=== PATIENT | female | born 1995 | race Caucasian/White ===

== ENCOUNTER 2021-05-12 11:40 | Emergency (ER) | payer OTHER, SELFPAY ==
[2021-05-12 11:54] VITALS: BP 104/57; PULSE 77; RESP 18; TEMP 36.4; O2SAT 100
--- NOTE | 2021-05-12 12:16 | ED.URI ---
HPI - URI/Sore Throat General Chief Complaint: Upper Respiratory Infection Stated Complaint: cough/congestion/headache/back pain Time Seen by Provider: 05/12/21 12:16 Source: patient Mode of arrival: ambulatory Limitations: no limitations History of Present Illness HPI Narrative: Teresa Lyn is a 25 yo female with PMH of renal stones who comes to express care with congestion, sore throat, backache, cough, headache for the last 2 to 3 days. Patient is unvaccinated for Covid. Related Data Allergies Allergy/AdvReac Type Severity Reaction Status Date / Time nabumetone Allergy Unknown Verified 04/05/11 11:52 No Known Allergies Allergy Verified 05/12/21 12:33 Review of Systems Review of Systems: CONSTITUTIONAL: Denies fever, has chills, sweats. Has headache and backache EYES: Denies visual changes, redness, discharge. ENT: Denies rhinorrhea, has congestion, has sore throat, otalgia. CARDIOVASCULAR: Denies chest pain, palpitations, edema. RESPIRATORY: Denies dyspnea, wheezing, has cough GASTROINTESTINAL: Denies abdominal pain, nausea, vomiting, diarrhea. GENITOURINARY: Denies dysuria, hematuria, abnormal discharge SKIN: Denies rash or itching. NEUROLOGIC: Denies numbness, or focal weakness. PSYCHIATRIC: Denies anxiety or depression. PMFSH Past Medical History Medical History (Updated 05/12/21 @ 12:23 by Meaghan Elise CNP) No acute medical problems Surgical History Surgical History (Updated 05/12/21 @ 12:19 by Meaghan Elise CNP) H/O lithotripsy Family History Family History Grandparent Family history of malignant neoplasm Family history of coronary artery disease Diabetes mellitus Social History Social History Smoking status: Never smoker Alcohol intake: never Gender identity (if verbalized by the patient): Female Comments At time of signature, I agree with nursing past medical, surgical, social and family history. There is no relevant family history pertinent to the presenting complaint. Exam Narrative: GENERAL: This is a well-nourished, well-developed patient, in moderate distress. HEAD: normocephalic, atraumatic. EYES: . Sclera clear/white. Vision is grossly intact. EARS: External ears normal, . Hearing grossly intact. NOSE: External nose normal without nasal discharge, nares without redness, no rhinorrhea. THROAT: Mucous membranes moist, posterior pharynx erythema NECK: Neck supple, non-tender CARDIOVASCULAR: Regular rate and rhythm without murmurs, gallops, or rubs. RESPIRATORY: Clear to auscultation. Breath sounds equal bilaterally. No wheezes, rales, or rhonchi. GASTROINTESTINAL: Abdomen soft, non-tender, SKIN: warm, intact with no suspicious lesions or rash, good texture and turgor. NEURO: awake, alert, and oriented to person, place and time. There were no obvious focal neurologic abnormalities. Steady gait- complaining of headache EXTREMITIES: Normal range of motion. BACK: Nontender without deformity, complaining of bilateral back pain Course Course Emergency Course: Patient is a 25-year-[facility] of headache cough back pain congestion not feeling well Covid and strep ordered Covid rapid done which was positive UA showed only 2+ blood and pt is on menses Patient placed on isolation for 10 days and started on prednisone, albuterol, Tessalon, ibuprofen, emphasize hydration and infection control. Avoid people that have not been vaccinated Vital Signs Vital signs: Vital Signs Temperature 97.6 F 05/12/21 11:54 Pulse Rate 77 05/12/21 11:54 Respiratory Rate 18 05/12/21 11:54 Blood Pressure 104/57 L 05/12/21 11:54 Pulse Oximetry 100 05/12/21 11:54 Temperature 97.6 F 05/12/21 11:54 Pulse Rate 77 05/12/21 11:54 Respiratory Rate 18 05/12/21 11:54 Blood Pressure 104/69 05/12/21 12:33 Pulse Oximetry 1
[2021-05-12 12:31] VITALS: BP 104/69
[2021-05-12 12:33] VITALS: BP 104/69
== END 2021-05-12 12:31 | disposition home or self-care (01) ==
PROVIDERS: Emergency Provider Nurse Practitioner
DX: U07.1 COVID-19 (principal)
CPT/HCPCS: 81003; 87081; 87426; 87880; 99213; C9803; G0463

== ENCOUNTER 2023-08-18 15:56 | Emergency (ER) | payer OTHER, SELFPAY ==
--- NOTE | 2023-08-18 16:00 | ED.WOUNDLAC ---
HPI - Wound/Laceration General Chief Complaint: Wound/Laceration Stated Complaint: Wound Check Time Seen by Provider: 08/18/23 15:59 Source: patient Mode of arrival: ambulatory Limitations: no limitations History of Present Illness HPI narrative: Patient is a 27-year-old female who presents with concern for surgical site infection. Patient had moved job done in [place] on August 01. Patient states today she started having minor drainage from left moved around areola. Denies any redness streaking. Also reports macular papular rash that started yesterday. Denies any fever, chills, nausea, vomiting, diarrhea. Related Data Allergies Allergy/AdvReac Type Severity Reaction Status Date / Time No Known Allergies Allergy Verified 08/18/23 16:39 Review of Systems Review of Systems: All systems reviewed & are unremarkable except as noted in HPI and below Constitutional: Constitutional: Denies body ache(s), Denies chills, Denies fatigue, Denies fever(s), Denies headache(s), Denies malaise and Denies weakness Eyes: Eyes: Denies blurry vision, Denies irritation and Denies loss of vision ENT: Denies otalgia, Denies headache(s), Denies nasal discharge, Denies sinus pain and Denies sore throat Cardiovascular: Cardiovascular: Denies chest pain, Denies irregular heart rhythm and Denies dyspnea Respiratory: Respiratory: Denies dyspnea Gastrointestinal: Gastrointestinal: Denies abdominal pain, Denies melena, Denies hematochezia, Denies diarrhea, Denies nausea and Denies vomiting Musculoskeletal: Musculoskeletal: Denies back pain, Denies myalgias and Denies arthralgias Integumentary/Breasts: Skin/Breast: Denies pruritus, Denies rash and Reports wounds Neurologic: Denies headache(s), Denies loss of vision and Denies weakness Psychiatric: Psychiatric: Reports no additional psychiatric complaints Endocrine: Endocrine: Denies fatigue PMFSH Past Medical History Medical History BMI 25.0-25.9,adult No acute medical problems Surgical History Surgical History H/O lithotripsy Family History Family History Grandparent Family history of malignant neoplasm Family history of coronary artery disease Diabetes mellitus Social History Social History Smoking status: Never smoker Alcohol intake: never Lack of Transportation: No Lack of Food: Never True Current Housing: I Have Housing Concerned About Future Housing: No Difficulty Paying Gas/Electric Bills: No Difficulty Paying for Meds: No Currently Unemployed: No Difficulty w/ Childcare or Family Care: No Gender identity (if verbalized by the patient): Female Comments At time of signature, agree with nursing past medical, surgical, social and family history. There is no relevant family history pertinent to the presenting complaint. Exam Const: General: cooperative, healthy appearing, comfortable, no acute distress and well nourished Nutritional Appearance: well nourished Orientation/consciousness: patient oriented x3 Limitations: no limitations HENMT: Head: normal to inspection, normocephalic and atraumatic Ears: hearing grossly normal bilaterally and external ears normal Face/Nose/Sinus: Normal external nose present, normal facial exam and face symmetric Face and sinus: normal facial exam and face symmetric Mouth: Yes lip normal Eyes: General: appearance normal, both eyes and all related structures Alignment and Position: alignment normal and position normal Periorbital: periorbital findings normal Eyelids: eyelids normal Pupils: Equal, round and reactive pupils present EOM: EOMs intact bilaterally Neck: Neck: normal visual inspection, full ROM and supple Chest: Chest palpation & inspection: normal inspection of the chest Ches
[2023-08-18 16:14] VITALS: BP 105/73; PULSE 52; RESP 16; TEMP 36.3; O2SAT 100
== END 2023-08-18 16:46 | disposition home or self-care (01) ==
PROVIDERS: Emergency Provider Nurse Practitioner Family; PCP Family Medicine
DX: T85.79XA Infection and inflammatory reaction due to other internal prosthetic devices, implants and grafts, initial encounter (principal); Z98.82 Breast implant status; F41.9 Anxiety disorder, unspecified
CPT/HCPCS: 99213; G0463

== ENCOUNTER 2023-09-29 17:16 | Emergency (ER) | payer OTHER, SELFPAY ==
[2023-09-29 17:28] VITALS: BP 104/75; PULSE 102; RESP 16; TEMP 36.8; O2SAT 99
--- NOTE | 2023-09-29 17:37 | ED.SKABFB ---
HPI - Skin/Abscess/Foreign Bdy General Chief complaint: Skin/Abscess/Foreign Body Stated complaint: Rash Time Seen by Provider: 09/29/23 17:37 Source: patient Mode of arrival: ambulatory Limitations: no limitations History of Present Illness HPI narrative: 28-year-old female presents with complaint of intermittent hives for the past week. States started after getting back from [facility] vacation. Started to left thigh took Benadryl and resolved. Now has to back, chest. Has not taking any Benadryl. Unable to get in with primary care physician for 2 days. No difficulty swallowing or breathing. All systems reviewed and negative except as noted above. Related Data Allergies Allergy/AdvReac Type Severity Reaction Status Date / Time No Known Allergies Allergy Verified 08/18/23 16:39 Review of Systems Review of Systems: CONSTITUTIONAL: Denies fever, chills, or sweats. EYES: Denies visual changes, redness, or discharge. ENT: denies rhinorrhea, congestion, sore throat, or otalgia. CARDIOVASCULAR: Denies chest pain, palpitations, or edema. RESPIRATORY: Denies cough or dyspnea. GASTROINTESTINAL: Denies abdominal pain, nausea, vomiting, or diarrhea. GENITOURINARY: Denies dysuria or hematuria. SKIN: reports rash and itching. MUSCULOSKELETAL: Denies back pain, joint pain, or myalgia. NEUROLOGIC: Denies headache, numbness, or weakness. PSYCHIATRIC: Denies anxiety or depression. All other systems reviewed are negative, except as documented in HPI. [facility] Past Medical History Medical History BMI 25.0-25.9,adult No acute medical problems Surgical History Surgical History H/O lithotripsy Family History Family History Grandparent Family history of malignant neoplasm Family history of coronary artery disease Diabetes mellitus Social History Social History Smoking status: Never smoker Alcohol intake: never Lack of Transportation: No Lack of Food: Never True Current Housing: I Have Housing Concerned About Future Housing: No Difficulty Paying Gas/Electric Bills: No Difficulty Paying for Meds: No Currently Unemployed: No Difficulty w/ Childcare or Family Care: No Gender identity (if verbalized by the patient): Female Comments At time of signature, agree with nursing past medical, surgical, social and family history. There is no relevant family history pertinent to the presenting complaint. Exam Narrative: GENERAL: This is a well-nourished, well-developed patient, in no apparent distress. HEAD: normocephalic, atraumatic. EYES: PERRL. Sclera clear/white. Vision is grossly intact. EARS: External ears normal NOSE: External nose normal NECK: Neck supple, non-tender without lymphadenopathy, masses or thyromegaly. CARDIOVASCULAR: Regular rate and rhythm without murmurs, gallops, or rubs. RESPIRATORY: Clear to auscultation. Breath sounds equal bilaterally. No wheezes, rales, or rhonchi. SKIN: warm, Dry, intact, good texture and turgor. erythematous hives to lower back, chest and inbetween breasts. NEURO: awake, alert, and oriented to person, place and time. There were no obvious focal neurologic abnormalities. EXTREMITIES: No joint tenderness, effusion, or edema noted. Course Course Level of Care: Express Care Visit Vital Signs Vital signs: Vital Signs Temperature 36.8 C 09/29/23 17:28 Pulse Rate 102 H 09/29/23 17:28 Respiratory Rate 16 09/29/23 17:28 Blood Pressure 104/75 09/29/23 17:28 Pulse Oximetry 99 09/29/23 17:28 Oxygen Delivery Room Air 09/29/23 17:28 Temperature 36.8 C 09/29/23 17:28 Pulse Rate 102 H 09/29/23 17:28 Respiratory Rate 16 09/29/23 17:28 Blood Pressure 104/75 09/29/23 17:28 Pulse Oximetry 99 09/29
== END 2023-09-29 17:50 | disposition home or self-care (01) ==
PROVIDERS: Emergency Provider Nurse Practitioner Family; PCP Family Medicine
DX: L50.9 Urticaria, unspecified (principal)
CPT/HCPCS: 99213; G0463

== ENCOUNTER 2025-07-05 17:56 | Emergency (ER) | payer OTHER, SELFPAY ==
[2025-07-05 18:03] VITALS: BP 99/67; PULSE 66; RESP 16; TEMP 36.5; O2SAT 99
--- NOTE | 2025-07-05 18:15 | ED_ITS ---
HPI - Nausea/Vomiting/Diarrhea General Chief complaint: Nausea/Vomiting/Diarrhea Stated complaint: Unable to Eat/Dehydrated Time Seen by Provider: 07/05/25 17:58 Source: patient Mode of arrival: ambulatory Limitations: no limitations History of Present Illness HPI Narrative: Patient is a 29-year-old female who presents with 2 days of nausea, vomiting and diarrhea. Denies any abdominal cramping. States she ate [employer] the night before symptoms started. Also reports cold chills and sweating. No other family members are ill. States she has no appetite and does have significant fatigue. Patient has taken ibuprofen once. Related Data Home Medications ?Medication ?Instructions ?Recorded ?Confirmed ?Last Taken ?Type dextroamphetamine-amphetamine ER PO 07/05/25 Unknown History 20 mg 24hr capsule,extend release duloxetine 30 mg capsule,delayed mg PO 07/05/25 Unkno wn History release Allergies Allergy/AdvReac Type Severity Reaction Status Date / Time metronidazole (From Flagyl) Allergy Unknown Hives Verified 07/05/25 17:59 Review of Systems Review of Systems: All systems reviewed & are unremarkable except as noted in HPI and below Constitutional: Constitutional: Denies body ache(s), Denies chills, Denies fatigue, Denies fever(s), Denies headache(s), Denies malaise and Denies weakness Eyes: Eyes: Denies blurry vision, Denies irritation and Denies loss of vision ENT: Denies otalgia, Denies headache(s), Denies nasal discharge, Denies sinus pain and Denies sore throat Cardiovascular: Cardiovascular: Denies chest pain, Denies irregular heart rhythm and Denies dyspnea Respiratory: Respiratory: Denies dyspnea Gastrointestinal: Gastrointestinal: Denies abdominal pain, Denies melena, Denies hematochezia, Reports diarrhea, Reports nausea and Reports vomiting Musculoskeletal: Musculoskeletal: Denies back pain, Denies myalgias and Denies arthralgias Integumentary/Breasts: Skin/Breast: Denies pruritus and Denies rash Neurologic: Denies headache(s), Denies loss of vision and Denies weakness Psychiatric: Psychiatric: Reports no additional psychiatric complaints Endocrine: Endocrine: Denies fatigue PMFSH Past Medical History Medical History Left rotator cuff tear Overweight with body mass index (BMI) of 28 to 28.9 in adult BMI 25.0-25.9,adult No acute medical problems Surgical History Surgical History H/O lithotripsy Family History Family History Grandparent Family history of malignant neoplasm Family history of coronary artery disease Diabetes mellitus Social History Social History Smoking status: Never smoker Alcohol intake: never Lack of Transportation: No Lack of Food: Never True Current Housing: I Have Housing Concerned About Future Housing: No Difficulty Paying Gas/Electric Bills: No Difficulty Paying for Meds: No Currently Unemployed: No Difficulty w/ Childcare or Family Care: No Gender identity (if verbalized by the patient): Female Comments At time of signature, agree with nursing past medical, surgical, social and family history. There is no relevant family history pertinent to the presenting complaint. Exam Const: General: cooperative, healthy appearing, comfortable, no acute distress and well nourished Nutritional Appearance: well nourished Orientation/consciousness: patient oriented x3 Limitations: no limitations HENMT: Head: normal to inspection, normocephalic and atraumatic Ears: hearing grossly normal bilaterally and external ears normal Face/Nose/Sinus: Normal external nose present, normal facial exam and face symmetric Face and sinus: normal facial exam and face symmetric Mouth: Yes lip normal Eyes: General: appearance normal, both eyes and all related structures Alignment and Position: alignment normal and position normal Periorbital: periorbital findings normal Eyelids: eyelids normal Pupils: Equal, round and reactive pupils present EOM: EOMs intact bilaterally Neck: Neck: normal visual inspection, full ROM and supple Chest: Chest palpation & inspection: normal inspection of the chest Resp: Effort & Inspection: normal respiratory effort and able to speak in complete sentences Auscultation: clear to auscultation bilaterally Cardio: Rate: regular rate Rhythm: regular rhythm Heart sounds: S1 normal heart sound present and S2 normal heart sound present GI: Inspection: normal to inspection Skin: General skin exam: normal color and no rashes or lesions noted Neuro: General: patient oriented x3 and moves all extremities Cranial nerves: Yes Equal, round and reactive pupils present Speech: normal speech Gait exam (Neuro): Normal gait present Extrem: General: normal to inspection, full ROM and no edema Psych: Appearance: grossly normal and well kempt Mental Status: mental status grossly normal Speech and movement: Normal speech and movement present Affect: normal affect Attitude: cooperative Thought process: Normal thought process present Course Course Emergency Course: Patient is aware of diagnosis, understands and agrees to treatment plan. Anticipatory guidance given. Patient agrees to follow-up as directed and is aware of reasons to seek care at the emergency department. Portions of this record may have been created with voice recognition software Level of Care: Express Care Visit Vital Signs Vital signs: Vital Signs Temperature 36.5 C 07/05/25 18:03 Pulse Rate 66 07/05/25 18:03 Respiratory Rate 16 07/05/25 18:03 Blood Pressure 99/67 L 07/05/25 18:03 Pulse Oximetry 99 07/05/25 18:03 Oxygen Delivery Room Air 07/05/25 18:03 Temperature 36.5 C 07/05/25 18:03 Pulse Rate 66 07/05/25 18:03 Respiratory Rate 16 07/05/25 18:03 Blood Pressure 99/67 L 07/05/25 18:03 Pulse Oximetry 99 07/05/25 18:03 Oxygen Delivery Room Air 07/05/25 18:03 Reviewed MDM - Nausea/Vomiting/Diarrhea MDM Narrative Medical decision making narrative: Pt well hydrated appearing, in no respiratory distress, hemodynamically stable. Recommend supportive care. The patient is stable at time of discharge the clinical impression was discussed and the patient was given the opportunity to ask questions, which were addressed as completely as possible given the information available at present. Anticipatory guidance and return to care precautions were discussed and the importance of primary care follow-up was stressed and encouraged. The patient voiced understanding of the plan, indications to return, and the need for follow-up. Exam findings show no acute concerns or changes Patient is appropriate for outpatient treatment and follow-up. Differential Diagnosis Differential diagnosis: Likely food poisoning, gastroenteritis and dehydration Medical Records Attestation: I reviewed the patient's medical records. Lab Data Attestation: I reviewed the patient's lab results. Labs: Lab Results 07/05/25 Range/Units 18:15 POC Influenza A Ag Negative (Negative) POC Influenza B Ag Negative (Negative) POC SARS CoV-2 Ag Negative (Negative) Discharge Plan Discharge Clinical Impression: Gastroenteritis Patient Disposition: Home Condition: Stable Instructions: Gastroenteritis (ED) Additional Instructions: Stay hydrated. Take small sips of fluid containing electrolytes frequently(Body [place], Gatorade, Powerade, liquid IV). Eat small meals that her very bland including bananas, applesauce, rice, toast, boiled or grilled chicken, soup. Do not eat anything fried, spicy or overly acidic. After 48 hours of diarrhea you can take [id number] Imodium. You should go to the hospital if you experience return of persistent nausea and vomiting that does not resolve and does not allow you to tolerate any food or fluids, persistent fevers for greater than 2-3 more days, increasing abdominal pain that persists despite medications, persistent diarrhea, dizziness, syncope (fainting), or for any other concerns. Patient Language: Ukrainian Prescriptions: New ondansetron 4 mg tablet,disintegrating 4 mg PO Q6-8H PRN (Reason: nausea and vomiting) Qty: 7 0RF No Action dextroamphetamine-amphetamine 20 mg capsule,extended release 24hr PO duloxetine 30 mg capsule,delayed release(DR/EC) PO lisdexamfetamine [Vyvanse] 30 mg capsule 30 mg PO DAILY Qty: 30 0RF Rx Instructions: take same time every am alprazolam [Xanax] 0.25 mg tablet 0.25 mg PO BID PRN (Reason: anxiety) Qty: 4 0RF Rx Instructions: will take prior to flight Follow-up/Referrals: Beka Hernández MD [Primary Care Provider, Family Practice] - 1 Week Stand Alone Forms: Work/School Release IP Time of Disposition: 18:39
[2025-07-05 18:42] LABS: EDCOVIDSCREEN Negative (Negative); EDINFLUASCREEN Negative (Negative); EDINFLUBSCREEN Negative (Negative)
== END 2025-07-05 18:45 | disposition home or self-care (01) ==
PROVIDERS: Emergency Provider Nurse Practitioner Family; PCP Family Medicine
DX: K52.9 Noninfective gastroenteritis and colitis, unspecified (principal); Z20.822 Contact with and (suspected) exposure to COVID-19
CPT/HCPCS: 87426; 87804; 99213; G0463

== ENCOUNTER 2025-07-06 08:58 | Emergency (ER) | payer OTHER, SELFPAY ==
--- NOTE | ~2025-07-06 | CT_ITS ---
EXAMINATION: CT abdomen pelvis w con DATE: 07/06/2025 10:49 INDICATION: Generalized abdominal pain. TECHNIQUE: Computed tomography (CT) of the abdomen and pelvis was performed with 100 mL Omnipaque 350 intravenous contrast. Automated exposure control and iterative reconstruction technique were employed. The dose-length product was 305.17 mGy-cm. COMPARISON: None. FINDINGS: The visualized portions of the lung bases are clear without pneumonia or pleural effusion. The heart size is normal. No pericardial effusion. There are bilateral breast implants. The liver, gallbladder, spleen, pancreas, adrenal glands, and kidneys are normal. There are no dilated loops of bowel. The appendix is normal. There are no pathologically enlarged lymph nodes. There is physiologic fluid in the pelvis. The bones are unremarkable. IMPRESSION: 1. No etiology for the patient's symptoms. Reviewed, dictated and finalized at location E.
[2025-07-06 09:08] VITALS: BP 103/69; PULSE 62; RESP 16; TEMP 36.7; O2SAT 100
--- OUTSIDE RECORDS SUMMARY | 2025-07-06 09:32 | XMS_ITS | Clinical Summary ---
Author Organization [facility] Address [address] [place] [address] Phone Care Team Providers Care Sterile Products Processor Name Role Phone Honorable, Eva Paredes APRN, SUKUMAR Primary Care Provider Allergies Active Allergy Reactions Criticality Noted Date Comments Metronidazole Hives,Itching,Swelling High 10/04/2017 Hives Medications butalbital-acetam inophen-caffeine (FIORICET, ESGIC) 50-325-40 MG Tablet Take 1 Tablet by mouth. 12/23/19 19 Active cyclobenzaprine (FLEXERIL) 10 MG Tablet Take 10 mg by mouth. 12/23/19 19 Active dextromethorphan (Tussin Cough) 15 MG/5ML SyrupIndications: Acute cough Take 10 mL by mouth every 12 hours. 118 mL 08/26/20 24 Active albuterol 108 (90 Base) MCG/ACT Aerosol SolutionIndicatio ns:Bronchitis with acute wheezing take 2 Puffs by inhalation every 4 hours as needed for Wheezing. 18 g 08/30/20 24 Active cyclobenzaprine (FLEXERIL) 10 MG TabletIndications :Torticollis Take 1 Tablet by mouth 3 times daily as needed for Muscle spasms for up to 20 doses. 20 Tablet 08/30/20 24 Active Desvenlafaxine Succinate 50 MG TABLET SR 24 HR Take 1 Tablet by mouth daily. 90 Tablet 1 09/16/20 24 Active ALPRAZolam (XANAX) 0.25 MG TabletIndications :Anxiety TAKE 1 TABLET BY MOUTH TWICE DAILY NEEDED FOR ANXIETY 4 Tablet 11/22/19 25 Active amphetamine-dextr oamphetamine (ADDERALL XR) 20 MG CAPSULE SR 24 HRIndications:Poo r concentration Take 1 Capsule by mouth every morning. 30 Capsule 02/17/20 25 Active tirzepatide-weigh t management (Zepbound) 7.5 MG/0.5ML Solution Auto-injector 7.5 mg by Subcutaneous route once a week. 2 mL 1 02/23/20 25 Active Active Problems No known active problems Encounters Date Type Department Care Team Description 04/14/2025 Refill [facility] - Primary Care - Normal [address] [place] [id number] Eva Smith APRN, SUKUMAR Medication Refill 04/06/2025 Telephone [facility] [address] [place] [address] Eva Smith APRN, CNP Prior Authorization (tirzepatide-weight management (Zepbound) 7.5 MG/0.5ML Solution Auto-injector ) from Last 3 Months Immunizations Immunization Administration Dates Next Due Influenza Vaccine,unspecified Formulation 2020,09/12/2020,08/02/2020 Influenza,Split Virus,Trivalent,Injectable,PF 07/15/2024 RHO(D) Immune Globulin- IV Or IM 07/20/2015 TDAP Vaccine 11/22/2020,10/12/2015 Social History Tobacco Use Types Packs/Day Years Used Date Smoking Tobacco: Never Smokeless Tobacco: Never Tobacco Cessation:Counseling Given: Not Answered PHQ-2 Answer Date Recorded Total Score - Questions 1-9 15 12/2023 Comments No Sex and Gender Information Value Date Recorded Sex Assigned at Not on file Legal Sex Female 1:51 PM CDT Gender Identity Not on file Sexual Orientation Not on file Last Filed Vital Signs Vital Sign Reading Time Taken Comments Blood Pressure 97/71 08/30/2024 11:53 AM FOREST FIRE OFFICER Pulse 70 08/30/2024 11:53 AM FOREST FIRE OFFICER Temperature 36.4 C (97.6 F) 08/30/2024 11:53 AM FOREST FIRE OFFICER Respiratory Rate 20 08/30/2024 11:53 AM FOREST FIRE OFFICER Oxygen Saturation 98% 08/30/2024 11:53 AM FOREST FIRE OFFICER Inhaled Oxygen Concentration - - Weight 61.7 kg (136 lb) 02/16/2025 7:00 AM CDT p t stated Height 160 cm (5' 3) 02/16/2025 7:00 AM CDT Body Mass Index 24.09 02/16/2025 7:00 AM CDT Plan of Treatment Health Maintenance Due Date Last Done Comments Hepatitis C Virus (HCV) Screening 1993 Hepatitis B Immunization (1 of 3 - 19+ 3-dose series) 2012 Pap Smear 2014 Human Papillomavirus (HPV) Immunization (1 - 3-dose SCDM series) 2020 Cervical Cancer Screening (CCS) 2023 HPV/Cotest 2023 Influenza Immunization (#1) 06/13/202512/2023, 07/16/2021, 09/12/2020, Additional history exists SARS-COV-2 Immunization ( season) 2025 10/17/2021, 08/08/2021 Td Immunization Every 10 Years (Adults With 1 Tdap) 11/22/2030 11/22/2020, 10/12/2015 Respiratory Syncytial Virus (RSV) Immunization (Adult) (1 - 1-dose 75+ series) 2068 TdaP Immunization Discontinued 11/22/2020, 10/12/2015 Meningococcal Immunization (ACWY) Aged Out No longer eligible based on patient's age to complete this topic Pneumococcal Immunization Combined Aged Out No longer eligible based on patient's age to complete this topic Rotavirus Immunization Aged Out No lo nger eligible based on patient's age to complete this topic Insurance MEDICAID [facility] Care Teams Sterile Products Processor Relationship Specialty Start Date End Date Honorable, Eva Paredes APRN, HOSTESS [address] [place] [address] [place] [address] PCP - General Certified Nurse Practitioner 07/15/24
--- OUTSIDE RECORDS SUMMARY | 2025-07-06 09:32 | XMS_ITS | Clinical Summary ---
Author Organization [facility] Address [address] [place] [address] Care Team Providers Care Welding Equipment Repairer Supervisor Name Role Phone Elda Lyle MD Unavailable [phone] Keila Addison DO Primary Care Provide r Allergies Active Allergy Reactions Criticality Noted Date Comments Metronidazole Hives,Swelling Medium 11/07/2020 Medications escitalopram (LEXAPRO) 10 mg tablet Take 10 mg by mouth daily 03/16/2021 Active phenazopyridine (PYRIDIUM) 100 mg tablet Take 1 tablet (100 mg total) by mouth 3 (three) times a day as needed for urinary pain 10 tablet 04/17/2021 Active tamsulosin (FLOMAX) 0.4 mg extended release capsule Take 1 capsule (0.4 mg total) by mouth daily 7 capsule 04/17/2021 Active oxybutynin (DITROPAN) 5 mg tablet Take 1 tablet (5 mg total) by mouth 3 (three) times a day as needed (For bladder spasms (bladder pain/sudden urge to urinate)) 21 tablet 04/17/2021 Active oxyCODONE-aceta minophen (PERCOCET) 5-325 mg per tabletIndicatio ns:Pain Take 1 tablet by mouth every 4 (four) hours as needed for pain 10 tablet 04/17/2021 Active Active Problems Problem Noted Date Diagnosed Date Kidney stone 04/10/2021 Term 01/04/2021 Immunizations Immunization Administration Dates Next Due Influenza, Unspecified 09/12/2020,08/02/2020 Tdap 11/22/2020 Surgical History Surgery Date Site/Laterality Comments SHOULDER SURGERY Left Medical History Medical History Date Comments Urinary tract infection recurren t kidney stones recurrent kidney stones Hematuria Depression GERD (gastroesophageal reflux disease) Family History Medical History Relation Name Comments Diabetes Father Hypertension Father Relation Name Status Comments Father Social History Tobacco Use Types Packs/Day Years Used Date Smoking Tobacco: Never Smokeless Tobacco: Never Alcohol Use Standard Drinks/Week Comments Not Currently 0 (1 standard drink = 0.6 oz pur e alcohol) AUDIT-C Answer Date Recorded Q1: How often do you have a drink containing alc ohol? Monthly or less 04/17/2021 Q2: How many drinks containi ng alcohol do you have on a typical day when you are drinking? 3 or 4 04/17/2021 Q3: How often do you have si x or more drinks on one occasion? Less than monthly 04/17/2021 [place] Depression Scale Answer Date Recorded [place] Depression Scale Total 4 01/04/2021 The thought of harming myself has occurred to me . Never 01/04/2021 Personal Safety Answer Date Recorded Getting School Help Needed Not on file 12/07 Comments No Sex and Gender Information Value Date Recorded Sex Assigned at Not on file Legal Sex Female 10:32 PM NETWORK DIRECTOR Gender Identity Not on file Sexual Orientation Not on file Obstetrics History Para Term AB IAB SAB Ectopic Multiple Livin g Live Births 2 2 2 0 2 2 Date Outcome GA Total Labor Labor/2nd/3rd Weight Sex Type Anes PTL Michelle A1 A5 Name Clin Term Vag-S pont Livin g 2020 Term 39w 0d 6h 00m 5h 28m/0h 28m/0h 04m 3.1 kg (6 lb 13.4 oz) M Vag-S pont Epidur al N Livin g 9 9 CHRISTOPHER CARD Jennif er Ann, MD Complications:None Delivery Location:This Facil ity ([facility]) Last Filed Vital Signs Vital Sign Reading Time Taken Comments Blood Pressure 124/83 04/23/2021 10:59 AM CDT Pulse 53 04/23/2021 10:59 AM CDT Temperature 36.2 C (97.2 F) 04/23/2021 10:59 AM CDT Respiratory Rate 11 04/17/2021 3:40 PM CDT Oxygen Saturation 96% 04/17/2021 3:40 PM CDT Inhaled Oxygen Concentration - - Weight 69.9 kg (154 lb) 04/17/2021 12:27 PM CDT Height 162.6 cm (5' 4) 04/17/2021 12:27 PM CDT Body Mass Index 26.43 04/17/2021 12:27 PM CDT Plan of Treatment Not on file Medical Devices Explanted Type Area Chief Design Drafter Device Identifier Shelf Expiration Date Model / Serial / Lot [employer] [id number] Inlay [place] 6fr 24cm Pusher Fluoro Marker Atraumatic Insertion Latex Free - [id number] Implanted:Qty: 1 on 04/17/2021 by Zoltan Shah DO at [facility] Explanted:Qty: 1 on 04/23/2021 by Tomy Mars MD Right: Urethra [employer] 03/03/2024 [id number] / / [id number] Insurance [facility] [employer] Advance Directives For more information, please contact: [phone] * Full Code (Latest Code Status on File) Date Activated Date Inactivated Comments 01/04/2021 2:21 AM 01/06/2021 2:55 PM Full CPR in case of cardiopulmonary arrest * Full Code Date Activated Date Inactivated Comments 11/07/2020 12:47 PM 11/08/2020 2:31 PM Full CPR in case of cardiopulmonary arrest Care Teams Welding Equipment Repairer Supervisor Relationship Specialty Start Date End Date Keila Addison DO [address] [place] [address] PCP - General Family Medicine 04/03/21 Elda Lyle MD [address] [place] [address] Consulting Physician Obstetrics and Gynecology 11/08/20
--- OUTSIDE RECORDS SUMMARY | 2025-07-06 09:32 | XMS_ITS | Clinical Summary ---
Author Organization [facility] Address [address] [place] [address] Care Team Providers Care Silk Folder Name Role Phone Beka Hernández MD Primary Care Provider [phone] Allergies No known active allergies Medications No known medications Social History Tobacco Use Types Packs/Day Years Used Date Smoking Tobacco: Never Smokeless Tobacco: Never Tobacco Cessation:Counseling Given: Not Answered Alcohol Use Standard Drinks/Week Comments Not Currently 0 (1 standard drink = 0.6 oz pur e alcohol) Comments Unknown Sex and Gender Information Value Date Recorded Sex Assigned at Not on file Legal Sex Female 7:56 AM CDT Gender Identity Not on file Sexual Orientation Not on file Last Filed Vital Signs Vital Sign Reading Time Taken Comments Blood Pressure 114/62 09/15/2023 9:57 PM COUNTER FORMER Pulse 50 09/15/2023 9:57 PM COUNTER FORMER Temperature 36 C (96.8 F) 09/15/2023 8:05 PM COUNTER FORMER Respiratory Rate 16 09/15/2023 9:57 PM COUNTER FORMER Oxygen Saturation 98% 09/15/2023 9:57 PM COUNTER FORMER Inhaled Oxygen Concentration - - Weight 70.3 kg (155 lb) 09/15/2023 8:02 PM COUNTER FORMER Height 160 cm (5' 3) 09/15/2023 8:02 PM COUNTER FORMER Body Mass Index 27.46 09/15/2023 8:02 PM COUNTER FORMER Plan of Treatment Health Maintenance Due Date Last Done Comments Cervical Cancer Screening Pa p Smear (Age 30 to 64) Every 3 Years 1993 Annual Physical 1996 Hepatitis C 2011 Hepatitis B Vaccines (1 of 3 - 19+ 3-dose series) 2012 HPV Vaccines (1 - 3-dose SCD M series) 2020 Cervical Cancer Screening Pa p with HPV Testing (Age 30 to 64) Every 5 Years 2023 Cervical Cancer Screening wi th HPV 2023 COVID-19 Vaccine (3 - 2024-2 6 season) 2025 10/17/2021, 08/08/2021 DTaP, Tdap and Td Vaccines ( 3 - Td or Tdap) 11/22/2030 11/22/2020, 10/12/2015 Meningococcal B Vaccine Aged Out No l onger eligible based on patient's age to complete this topic Meningococcal Vaccine Aged Out No luciano melody eligible based on patient's age to complete this topic Pneumococcal Vaccine: Pediatrics (0 to 5 Years) and At-Risk Patients (6 to 49 Years) Aged Out No longer eligible b ased on patient's age to complete this topic RSV Immunizations Under 20 Months Aged Out No longer eligible b ased on patient's age to complete this topic Insurance [address] [place], [place] [id number] [place] [address] [employer] Care Teams Silk Folder Relationship Specialty Start Date End Date Beka Hernández MD [address] [address] PCP - General 06/19/16
--- OUTSIDE RECORDS SUMMARY | 2025-07-06 09:32 | XMS_ITS | Encounter Summary ---
Author Organization [facility] Address [address] [place] [address] Phone Care Team Providers Care Drop Hammer Operator Helper Name Role Phone Shellyable, Eva Lena SEPULVEDA CNP Primary Care Provider Reason for Visit * Reason Comments Medication Refill Encounter Details Date Type Department Care Team (Late st Contact Info) Description 04/01/2025 Refill [facility] - Primary Care - Normal Jones Adam [address] [place] [address] Db Boyd MD [address] [place], [place] [address] Medication Refill Social History Tobacco Use Types Packs/Day Years Used Date Smoking Tobacco: Never Smokeless Tobacco: Never PHQ-2 Answer Date Recorded Total Score - Questions 1-9 15 12/2023 Comments No Sex and Gender Information Value Date Recorded Sex Assigned at Not on file Legal Sex Female 1:51 PM CDT Gender Identity Not on file Sexual Orientation Not on file documented as of this encounter Miscellaneous Notes * Telephone Encounter - Siri Tony RN - 04/01/2025 2:49 PM CDT Medication failed the protocol, provider to review and approve the medication order if appropriate. Requested Prescriptions Pending Prescriptions Disp Refills ALPRAZolam (XANAX) 0.25 MG Tablet [Pharmacy Med Name: ALPRAZOLAM 0.25MG TABLETS] 4 Tablet Sig: TAKE 1 TABLET BY MOUTH TWICE DAILY NEEDED FOR ANXIETY Not Delegated - Benzodiazepines Protocol Failed - 04/01/2025 2:49 PM Failed - This refill cannot be delegated Passed - Visit with relevant provider in past 12 months or upcoming 90 days Recent Visits Date Type Provider Dept 07/15/24 Office Visit Eva Smith APRN, CNP [facility] Showing recent visits within past 365 days and meeting all other requirements Future Appointments No visits were found meeting these conditions. Showing future appointments within next 90 days and meeting all other requirements documented in this encounter Plan of Treatment Not on file documented as of this encounter Visit Diagnoses Diagnosis Anxiety Anxiety state, unspecified documented in this encounter Additional Health Concerns Assessment Noted Time PHQ-9 Depression Total Score: 15 024 1:00 PM CDT documented as of this encounter Care Teams Drop Hammer Operator Helper Relationship Specialty Start Date End Date Eva Smith APRN, CNP [address] [place] [address] PCP - General Certified Nurse Practitioner 07/15/24 documented as of this encounter
--- OUTSIDE RECORDS SUMMARY | 2025-07-06 09:32 | XMS_ITS | Clinical Summary ---
Author Organization [facility] Address [address] [place] [address] Care Team Providers Care Spot Welder Body Assembly Name Role Phone Elda Lyle MD Unavailable Keila Addison DO Primary Care Provider [phone] Source Comments [facility],non-owned Affiliates and Associated Physician Practices is amultiple site organization consisting of ambulatory clinics and hospital sitesin [place], [place], [place] and [place]. This disclosure is being madepursuant to the Care Everywhere program and may not contain all information available regarding this patient. Last updated 18.[facility] Allergies Active Allergy Reactions Criticality Noted Date Comments Metronidazole Itching 10/04/2017 Hives Medications * Be aware that medications may not be up to date on this document. Alwaysverify current medications with the patient. butalbital-acet aminophen-caffe ine (FIORICET) 50-325-40 MG tablet Take 1 (one) tablet by mouth every 4 hours as needed for Headache or Migraine 50 tablet 06/08/2021 Active albuterol HFA (PROVENTIL; VENTOLIN; PROAIR) 108 (90 Base) MCG/ACT inhaler Inhale 2 (two) puffs by mouth every 6 hours as needed 18 g 01/10/2022 Active meloxicam (MOBIC) 15 MG tablet Take 1 (one) tablet by mouth once daily 30 tablet 3 04/24/2022 Active desvenlafaxine succinate ER 24hr (Pristiq) 50 MG tablet TAKE 1 TABLET BY MOUTH EVERY DAY 30 tablet 02/06/2023 Active amphetamine-dex troamphetamine XR 24hr (Adderall XR) 20 MG capsule 09/25/2023 Activ e hydrOXYzine HCl (Atarax) 25 MG tablet 09/29/2023 Active phenazopyridine (Pyridium) 100 MG tablet Take 1 (one) tablet by mouth 3 times daily as needed For pain. 09/16/2023 Active triamcinolone acetonide (Kenalog) 0.1 % cream Apply to affected area 2 times daily 30 g 10/01/2023 Active fexofenadine (Khadijah) 180 MG tabletIndicatio ns:Chronic urticaria Take 1 (one) tablet by mouth once daily 90 tablet 1 10/10/2023 Active montelukast (Singulair) 10 MG tabletIndicatio ns:Chronic urticaria Take 1 (one) tablet by mouth once daily 90 tablet 1 10/10/2023 Active methylPREDNISol one (Medrol Dosepak) 4 MG tablet Take by mouth as directed Take as directed by mouth per package instructions. 21 tablet 01/05/2024 Active ondansetron, disintegrating, (Zofran ODT) 4 MG tablet Take 1 (one) tablet by mouth every 6 hours as needed for Nausea/Vomiti ng Allow tablet to dissolve on the tongue 12 tablet 01/08/2024 Active dicyclomine (Bentyl) 20 MG tablet Take 1 (one) tablet by mouth 4 times daily 15 tablet 01/08/2024 Active famotidine (Pepcid) 20 MG tablet Take 1 (one) tablet by mouth once daily 10 tablet 01/08/2024 Active ALPRAZolam (Xanax) 0.25 MG tabletIndicatio ns:Anxiety Take 1 (one) tablet by mouth once daily as needed for Anxiety Reasons: Feeling Anxious 4 tablet 01/26/2024 Active Active Problems Problem Noted Date Diagnosed Date Dysplasia of hip 07/22/2023 GERD (gastroesophageal reflux disease) 8 ADHD (attention deficit hyperactivity disorder) 08/18/2014 Overview (08/18/2014): Per Dr.Dean Hernández Anxiety 07/06/2014 Overview (07/06/2014): Well controlled on zoloft Dx 2012 Family history of diabetes mellitus type II 06/14 Nephrolithiasis 07/06/2014 Overview (07/06/2014): Had lithotripsy Immunizations Immunization Administration Dates Next Due INFLUENZA VACCINE 07/16/2021,09/12/2020,08/02/20 20 TDAP (7yrs+) 11/22/2020 Family History Medical History Relation Name Comments Arthritis - Rheumatoid Father Diabetes - Type 2 Father Hypercholesterolemia Father Hypertension Father Kidney Stones Father Pancreatitis Father None Known Mother Relation Name Status Comments Brother Alive Father Alive Maternal Grandfather Maternal Grandmother Mother Alive Paternal Grandfather Paternal Grandmother Social History Tobacco Use Types Packs/Day Years Used Date Smoking Tobacco: Never Smokeless Tobacco: Never Tobacco Cessation:Counseling Given: Not Answered Alcohol Use Standard Drinks/Week Comments Yes 0 (1 standard drink = 0.6 oz pur e alcohol) socially PHQ-2 Answer Date Recorded Patient Health Questionnaire-2 Score 0 01/05/2024 Comments No Sex and Gender Information Value Date Recorded Sex Assigned at Female 02/07/2021 2:36 PM CDT Legal Sex Female 12:06 PM PRODUCER ASSISTANT Gender Identity Female 02/07/2021 2:36 PM CDT Sexual Orientation Straight 02/07/2021 2: 36 PM CDT 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 Not on file Not on file Last Filed Vital Signs Vital Sign Reading Time Taken Comments Blood Pressure 114/67 01/08/2024 2:49 PM CDT Pulse 45 01/08/2024 2:49 PM CDT Temperature 36.4 C (97.6 F) 01/08/2024 10:53 AM CDT Respiratory Rate 18 01/08/2024 2:49 PM CDT Oxygen Saturation 100% 01/08/2024 2:49 PM CDT Inhaled Oxygen Concentration - - Weight 72.6 kg (160 lb) 01/08/2024 10:53 AM CDT Height 160 cm (5' 3) 01/08/2024 10:53 AM CDT Body Mass Index 28.34 01/08/2024 10:53 AM CDT Plan of Treatment Health Maintenance Due Date Last Done Comments HIV SCREENING 2008 HEPATITIS C SCREENING 09/14/2011 HEPATITIS B VACCINE (1 of 3 - 19+ 3-dose series) 2012 PAP SMEAR 2014 HPV VACCINE (1 - 3-dose SCDM series) 2020 DEPRESSION SCREENING 10/13/2024 01/05/2024, 07/22/2023, 02/27/2022 COVID-19 VACCINE (3 - 2024-2 6 season) 2025 10/17/2021, 08/08/2021 INFLUENZA VACCINE (#1) 2025 , 09/12/2020, 08/02/2020 DTAP/TDAP/TD VACCINES (2 - T d or Tdap) 11/22/2030 11/22/2020 ZOSTER VACCINE (1 of 2) 2043 HIB VACCINE Aged Out No longer eligi ble based on patient's age to complete this topic MENINGOCOCCAL (Group B) VACCINE SHARED DECISION-MAKING Aged Out No longer eligible based on patient's age to complete this topic MENINGOCOCCAL GROUPS A/C/Y/W VACCINE Aged Out No longer eligible b ased on patient's age to complete this topic PNEUMOCOCCAL VACCINE Aged Out No long er eligible based on patient's age to complete this topic Goals Goal Patient Goal Type Associated Problems Recent Progress Patient-Stated? Author Yearly PCP visit Lifestyle No [place] Insurance MEDICAID [facility] Care Teams Spot Welder Body Assembly Relationship Specialty Start Date End Date Keila Addison DO [address] [place] [address] PCP - General 08/19/24 Elda Lyle MD [address] [facility] [address] [place], [place] [id number] Obstetrics and Gynecology 02/09/21
--- OUTSIDE RECORDS SUMMARY | 2025-07-06 09:32 | XMS_ITS | Clinical Summary ---
Author Organization [facility] Address [address] [facility] [place] [address] Phone Care Team Providers Care Associate Professor Of Pathology Name Role Phone Unavailable Primary Care Provider Unavailabl e Allergies Active Allergy Reactions Criticality Noted Date Comments Metronidazole Hives High 12/17/2018 Medications acetaminophen (TYLENOL) 325 mg tablet Take 325 mg by mouth every 4 hours as needed. Active cyclobenzaprine (FLEXERIL) 10 mg tablet Take 1 Tablet (10 mg) by mouth 3 times daily as needed for Pain or Spasm. 20 Tablet 12/22/2018 Active acetaminophen-ca ffeine-butalbita l (FIORICET) 325-40-50 mg tablet Take 1 Tablet by mouth every 4 hours as needed for Migraine. 15 Tablet 12/22/2018 Active Active Problems Problem Noted Date Diagnosed Date GERD (gastroesophageal reflux disease) 8 ADHD (attention deficit hyperactivity disorder) 08/18/2014 Overview (01/17/2021): Overview: Per Dr.Dean Hernández Anxiety 07/06/2014 Overview (01/17/2021): Overview: Well controlled on zoloft Dx 2012 Nephrolithiasis 07/06/2014 Overview (01/17/2021): Overview: Had lithotripsy Family history of diabetes mellitus type II 06/14 Family History Relation Name Status Comments Father Alive Mother Alive Social History Tobacco Use Types Packs/Day Years Used Date Smoking Tobacco: Never Smokeless Tobacco: Never Alcohol Use Standard Drinks/Week Comments Yes 0 (1 standard drink = 0.6 oz pur e alcohol) Comments No Sex and Gender Information Value Date Recorded Sex Assigned at Not on file Legal Sex Female 10:26 AM CDT Gender Identity Not on file Sexual Orientation Not on file Last Filed Vital Signs Vital Sign Reading Time Taken Comments Blood Pressure 102/52 12/22/2018 12:17 AM CDT Pulse 56 12/21/2018 6:51 PM CDT Temperature 37.1 C (98.7 F) 12/21/2018 8:30 PM CDT Respiratory Rate 18 12/22/2018 12:17 AM CDT Oxygen Saturation 100% 12/22/2018 12:17 AM CDT Inhaled Oxygen Concentration - - Weight 68 kg (150 lb) 12/21/2018 8:30 PM CDT Height 160 cm (5' 3) 12/21/2018 8:30 PM CDT Body Mass Index 26.57 12/21/2018 8:30 PM CDT Plan of Treatment Health Maintenance Due Date Last Done Comments DTAP/TDAP/TD VACCINES (1 - Tdap) 2012 HEPATITIS B VACCINES (1 of 3 - 19+ 3-dose series) 04/2012 HPV/Cotest (21-29) 2014 HPV VACCINES (1 - 3-dose SCDM series) 2020 CERVICAL CANCER SCREENING 2023 HPV/Cotest (30-65) 2023 PAP SMEAR 2023 INFLUENZA VACCINE (#1) 2025
[2025-07-06 09:48] LABS: BEDSIDEPREGUCG Negative (Negative)
[2025-07-06] MEDS: SODIUM CHLORIDE 0.9% IV 1,000 ML 999 ML IV CONT (09:54)
[2025-07-06 09:56] LABS: Hematocrit 40.7 % (37.0-47.0); Hemoglobin 13.8 g/dL (12.0-15.0); Immature Granulocyte Percent A 0.3 % (0-0.5); Lymphocytes Absolute Auto 1.44 K/mm3 (0.9-3.2); Mean Corpuscular HGB Conc 33.9 g/dl (32-36); Mean Corpuscular Hemoglobin 29.3 pg (26-34); Mean Corpuscular Volume 86.4 fl (80-100); Nucleated Red Blood Cells Absolute Auto 0.000 K/mm3 (0.0-0.012); Nucleated Red Blood Cells Perc 0.0 % (0.0-0.2); Platelet Count Result 274 k/mm3 (150-375); Red Blood Count 4.71 M/mm3 (4.2-5.4); White Blood Count 7.5 K/mm3 (4.5-10.0)
[2025-07-06 09:59] LABS: Add Urine Microscopic? NO; Appearance Urine Clear (Clear); Glucose Urine UA Negative (Negative); Leukocyte Esterase Ur Negative LEU/UL (Negative); Nitrate Urine Negative (Negative); Specific Grav Ur 1.005 (1.001-1.035)
--- OUTSIDE RECORDS SUMMARY | 2025-07-06 10:16 | XMS_ITS | Clinical Summary ---
Author Organization [facility] Address [address] [place] [address] Care Team Providers Care Supply Chain Associate Name Role Phone Elda Lyle MD Unavailable [phone] Keila Addison DO Primary Care Provide r [...] on one occasion? Less than monthly 04/17/2021 [place] Depression Scale Answer Date Recorded [place] Depression Scale Total 4 01/04/2021 The thought of harming myself has occurred to me . Never 01/04/2021 Personal Safety Answer Date Recorded Getting School Help Needed Not on file 12/07 Comments No Sex and Gender Information Value Date Recorded Sex Assigned at Not on file Legal Sex Female 10:32 PM REHAB LIAISON Gender Identity Not on file Sexual Orientation [...] Ann, MD Complications:None Delivery Location:This Facil ity ([facility] Last Filed Vital Signs [...] on file Medical Devices Explanted Type Area Biophysics Professor Device Identifier Shelf Expiration Date Model / Serial / Lot [employer] [id number] Inlay [place] 6fr 24cm Pusher Fluoro Marker Atraumatic Insertion Latex Free - [id number] Implanted:Qty: 1 on 04/17/2021 by Zoltan Shah DO at [facility] Explanted:Qty: 1 on 04/23/2021 by Tomy Mars MD Right: Urethra [employer] 03/03/2024 [id number] / / [id number] Insurance [facility] AJAY BERNSTEIN Advance Directives For more information, please contact: [phone] * Full Code (Latest Code Status on File) Date Activated Date Inactivated Comments 01/04/2021 2:21 AM 01/06/2021 2:55 PM Full CPR in case of cardiopulmonary arrest * Full Code Date Activated Date Inactivated Comments 11/07/2020 12:47 PM 11/08/2020 2:31 PM Full CPR in case of cardiopulmonary arrest Care Teams Supply Chain Associate Relationship Specialty Start Date End Date Keila Addison DO [address] [place] [address] PCP - General Family Medicine 04/03/21 Elda Lyle MD [address] [place] [address] Consulting Physician Obstetrics and Gynecology 11/08/20
--- OUTSIDE RECORDS SUMMARY | 2025-07-06 10:16 | XMS_ITS | Clinical Summary ---
Author Organization [facility] Address [address] [place] [address] Phone Care Team Providers Care Rubber Gasket Inspector Trimmer Name Role Phone Honorable, Eva Paredes APRN, [...] - Normal Robert Medina [address] [place] [id number] Eva Smith APRN, SUKUMAR Medication Refill 04/06/2025 Telephone [facility] [address] [place] [address] Eva Smith APRN, CNP Prior [...] Comments Blood Pressure 97/71 08/30/2024 11:53 AM BUSINESS BANKING RELATIONSHIP MANAGER Pulse 70 08/30/2024 11:53 AM BUSINESS BANKING RELATIONSHIP MANAGER Temperature 36.4 C (97.6 F) 08/30/2024 11:53 AM BUSINESS BANKING RELATIONSHIP MANAGER Respiratory Rate 20 08/30/2024 11:53 AM BUSINESS BANKING RELATIONSHIP MANAGER Oxygen Saturation 98% 08/30/2024 11:53 AM BUSINESS BANKING RELATIONSHIP MANAGER Inhaled Oxygen Concentration - - Weight 61.7 [...] age to complete this topic Insurance MEDICAID [facility] Care Teams Rubber Gasket Inspector Trimmer Relationship Specialty Start Date End Date Honorable, Eva Paredes APRN, LAWN SERVICE WORKER [address] [place] [address] [place] [address] PCP - General Certified Nurse Practitioner 07/15/24
--- OUTSIDE RECORDS SUMMARY | 2025-07-06 10:16 | XMS_ITS | Clinical Summary ---
Author Organization [facility] Address [address] [place] [address] Care Team Providers Care Police Lieutenant Patrol Name Role Phone Elda Lyle MD Unavailable [phone] Keila Addison DO Primary Care Provider [phone] Source Comments [facility],non-owned Affiliates and Associated Physician Practices is amultiple site organization consisting of ambulatory clinics and hospital sitesin [place], [place], [place] and [place]. This disclosure is being madepursuant to the Care Everywhere program and may not contain all information available regarding this patient. Last updated 18.[facility] Allergies Active Allergy Reactions Criticality Noted Date [...] PM CDT Legal Sex Female 12:06 PM DIGITAL MEDIA ASSOCIATE Gender Identity Female 02/07/2021 2:36 PM CDT [...] No [place] Insurance MEDICAID AJAY RAMIREZ [facility] Care Teams Police Lieutenant Patrol Relationship Specialty Start Date End Date Keila Addison DO [address] [place] [address] PCP - General 08/19/24 Elda Lyle MD [address] [facility] [address] [place], [place] [id number] Obstetrics and Gynecology 02/09/21
--- OUTSIDE RECORDS SUMMARY | 2025-07-06 10:16 | XMS_ITS | Clinical Summary ---
Author Organization [facility] Address [address] [place] [address] Care Team Providers Care Personal Care Assistant Name Role Phone Beka Hernández MD Primary Care Provider [phone] Allergies No known active allergies Medications No [...] Comments Blood Pressure 114/62 09/15/2023 9:57 PM HEALTH CARE SOCIAL WORKER Pulse 50 09/15/2023 9:57 PM HEALTH CARE SOCIAL WORKER Temperature 36 C (96.8 F) 09/15/2023 8:05 PM HEALTH CARE SOCIAL WORKER Respiratory Rate 16 09/15/2023 9:57 PM HEALTH CARE SOCIAL WORKER Oxygen Saturation 98% 09/15/2023 9:57 PM HEALTH CARE SOCIAL WORKER Inhaled Oxygen Concentration - - Weight 70.3 kg (155 lb) 09/15/2023 8:02 PM HEALTH CARE SOCIAL WORKER Height 160 cm (5' 3) 09/15/2023 8:02 PM HEALTH CARE SOCIAL WORKER Body Mass Index 27.46 09/15/2023 8:02 PM HEALTH CARE SOCIAL WORKER Plan of Treatment Health Maintenance Due Date [...] age to complete this topic Insurance [address] [place], [place] [id number] [place] [address] [employer] Care Teams Personal Care Assistant Relationship Specialty Start Date End Date Beka Hernández MD [address] [address] PCP - General 06/19/16
--- OUTSIDE RECORDS SUMMARY | 2025-07-06 10:16 | XMS_ITS | Clinical Summary ---
Author Organization [facility] Address [address] [facility] [place] [address] Phone Care Team Providers Care Transitional Care Manager Name Role Phone Unavailable Primary Care Provider [...]
--- OUTSIDE RECORDS SUMMARY | 2025-07-06 10:16 | XMS_ITS | Encounter Summary ---
Author Organization [facility] Address [address] [place] [address] Phone Care Team Providers Care Assistant Director Of Residence Life Name Role Phone Shellyable, Eva Lena SEPULVEDA CNP Primary Care Provider Reason for Visit * Reason Comments Medication Refill Encounter Details Date Type Department Care Team (Late st Contact Info) Description 04/01/2025 Refill [facility] Primary [facility] - Normal Jones Adam [address] [place] [address] Db Boyd MD [address] [place], [place] [address] Medication Refill Social History Tobacco Use Types [...] documented as of this encounter Care Teams Assistant Director Of Residence Life Relationship Specialty Start Date End Date Eva Smith APRN, CNP [address] [place] [address] PCP - General Certified Nurse Practitioner 07/15/24 documented as of this encounter
[2025-07-06 10:31] LABS: Alanine Aminotransferase 15 U/L (6-35); Albumin Level 4.0 g/dL (3.5-5.1); Alkaline Phosphatase 82 U/L (38-126); Anion Gap 6 mmol/L (4-12); Aspartate Amino Transferase 27 U/L (14-36); Bilirubin,Total 0.8 mg/dL (0.2-1.3); Blood Urea Nitrogen 13 mg/dL (7-17); Calcium 8.6 mg/dL (8.4-10.2); Carbon Dioxide 27 mmol/L (22-30); Chloride 104 mmol/L (98-107); Estimated CRCL calculation 78 ml/min; Estimated Glomerular Filt Rate > 60; Glucose 79 mg/dL (65-110); Potassium 3.9 mmol/L (3.4-5.0); Sodium 137 mmol/L (137-145); Total Protein 7.1 g/dL (6.3-8.2)
--- NOTE | 2025-07-06 11:56 | ED.NAVMDI ---
HPI - Nausea/Vomiting/Diarrhea General Chief complaint: Nausea/Vomiting/Diarrhea Stated complaint: N/V/D Time Seen by Provider: 07/06/25 09:07 29-year-old relatively healthy here with a complains of nausea, vomiting, diarrhea associated with abdominal cramp for past 1 day. Denies any fever or chills no recent antibiotic usage. No history of blood in the stool. Source: patient Mode of arrival: ambulatory Limitations: no limitations History of Present Illness MD elicited complaint: nausea, vomiting and diarrhea Onset (ago): day(s) (1) Location of pain: diffuse Radiation: diffuse Quality: cramping Exacerbating factors: none Relieving factors: none Related Data Home Medications ?Medication ?Instructions ?Recorded ?Confirmed ?Last Taken ?Type dextroamphetamine-amphetamine ER PO 07/05/25 Unknown History 20 mg 24hr capsule,extend release duloxetine 30 mg capsule,delayed mg PO 07/05/25 Unknown History release Allergies Allergy/AdvReac Type Severity Reaction Status Date / Time metronidazole (From Flagyl) Allergy Unknown Hives Verified 07/06/25 11:13 Review of Systems Review of Systems: GENERAL: Well-appearing, well-nourished, and in no acute distress. HEAD: Normocephalic, atraumatic. EYES: PERRLA and EOMI. ENT: Nares clear, no rhinorrhea or epistaxis. Mucous membranes moist. NECK: Supple. CHEST: Clear to auscultation. No respiratory distress. HEART: Regular rate and rhythm. No murmur heard. Normal peripheral pulses. ABDOMEN: Soft, nontender, nondistended, normal active bowel sounds. EXTREMITIES: Normal range of motion. No edema. SKIN: Warm, dry, no rash. NEURO: No focal deficits. Alert and oriented x3. PSYCH: Normal mood and affect. PMFSH Past Medical History Medical History Left rotator cuff tear Overweight with body mass index (BMI) of 28 to 28.9 in adult BMI 25.0-25.9,adult No acute medical problems Surgical History Surgical History H/O lithotripsy Family History Family History Grandparent Family history of malignant neoplasm Family history of coronary artery disease Diabetes mellitus Social History Social History Smoking status: Never smoker Alcohol intake: never Lack of Transportation: No Lack of Food: Never True Current Housing: I Have Housing Concerned About Future Housing: No Difficulty Paying Gas/Electric Bills: No Difficulty Paying for Meds: No Currently Unemployed: No Difficulty w/ Childcare or Family Care: No Gender identity (if verbalized by the patient): Female Course Course Emergency Course: Patient did receive 1 L of normal saline. Did inform her about the lab work and CT findings. Symptoms suggestive more of acute gastroenteritis. Advised her to drink more fluids take Bentyl for pain as prescribed. Follow with the primary doctor as needed Vital Signs Vital signs: Vital Signs Temperature 36.7 C 07/06/25 09:08 Pulse Rate 62 07/06/25 09:08 Respiratory Rate 16 07/06/25 09:08 Blood Pressure 103/69 07/06/25 09:08 Pulse Oximetry 100 07/06/25 09:08 Oxygen Delivery Room Air 07/06/25 09:08 Temperature 36.7 C 07/06/25 09:08 Pulse Rate 62 07/06/25 09:08 Respiratory Rate 16 07/06/25 09:08 Blood Pressure 103/69 07/06/25 09:08 Pulse Oximetry 100 07/06/25 09:08 Oxygen Delivery Room Air 07/06/25 09:08 MDM - Nausea/Vomiting/Diarrhea Differential Diagnosis Differential diagnosis: Likely food poisoning, gastroenteritis and dehydration Medical Records Attestation: I reviewed the patient's medical records. Lab Data Attestation: I reviewed the patient's lab results. 07/06/25 09:42 07/06/25 09:42 Labs: Lab Results 07/06/25 07/06/25 Range/Units 09:42 09:46 WBC 7.5 (4.5-10.0) K/mm3 RBC 4.71 (4.2-5.4) M/mm3 Hgb 13.8 (12.0-15.0) g/dL Hct 40.7 (37.0-47.0) % MCV 86.4 (80-100) fl MCH 29.3 (26-34) pg MCHC 33.9 (32-36) g/dl RDW 11.9 (11.5-14.5) % Plt Count 274 (150-375) k/mm3 MPV 10.1 (7.4-10.4) fl Immature Gran % (Auto) 0.3 (0-0.5) % Neut % (Auto) 69.8 (45.5-73.1) % Lymph % (Auto) 19.3 (18.3-44.2) % [place] % (Auto) 8.4 (2.6-8.5) % Eos % (Auto) 1.5 (0-4.4) % Baso % (Auto) 0.7 (0.2-1.2) % Lymph # (Auto) 1.44 (0.9-3.2) K/mm3 [place] # (Auto) 0.6 (0.1-0.6) K/mm3 Eos # (Auto) 0.1 (0-0.3) K/mm3 Baso # (Auto) 0.1 (0.0-0.1) K/mm3 Abs Immat Gran (auto) 0.02 (0.00-0.031) K/mm3 Absolute Neuts (auto) 5.2 (1.3-6.7) K/mm3 Absolute Nucleated RBC 0.000 (0.0-0.012) K/mm3 Nucleated RBC % 0.0 (0.0-0.2) % Sodium 137 (137-145) mmol/L Potassium 3.9 (3.4-5.0) mmol/L Chloride 104 (98-107) mmol/L Carbon Dioxide 27 (22-30) mmol/L Anion Gap 6 (4-12) mmol/L BUN 13 (7-17) mg/dL Creatinine 0.75 (0.7-1.0) mg/dL Estim Creat Clear Calc 78 ml/min Estimated GFR > 60 (59 - ) Glucose 79 (65-110) mg/dL Calcium 8.6 (8.4-10.2) mg/dL Total Bilirubin 0.8 (0.2-1.3) mg/dL AST 27 (14-36) U/L ALT 15 (6-35) U/L Alkaline Phosphatase 82 (38-126) U/L Total Protein 7.1 (6.3-8.2) g/dL Albumin 4.0 (3.5-5.1) g/dL Urine Color Yellow (Yellow) Urine Appearance Clear (Clear) Urine pH 6.5 (5.0-9.0) Ur Specific [place] 1.005 (1.001-1.035) Urine Protein Negative (Negative) mg/dL Urine Glucose (UA) Negative (Negative) mg/dL Urine Ketones Negative (Negative) mg/dL Ur Blood (Man) Negative (Negative) Urine Nitrate Negative (Negative) Urine Bilirubin Negative (Negative) Urine Urobilinogen 0.2 (<2.0) mg/dL Leukocyte Esterase Rfl Negative (Negative) SOPHIE/UL POC Urine HCG, Qual Negative (Negative) Imaging Data Radiologist's impression: ITS Impressions Abdomen/Pelvis CT 07/06/25 10:53 IMPRESSION: 1. No etiology for the patient's symptoms. Discharge Plan Discharge Clinical Impression: Gastroenteritis Patient Disposition: Home Condition: Stable Instructions: Gastroenteritis (ED) Patient Language: Grenadian Prescriptions: New dicyclomine 20 mg tablet 20 mg PO TID Qty: 20 0RF No Action dextroamphetamine-amphetamine 20 mg capsule,extended release 24hr PO duloxetine 30 mg capsule,delayed release(DR/EC) PO ondansetron 4 mg tablet,disintegrating 4 mg PO Q6-8H PRN (Reason: nausea and vomiting) Qty: 7 0RF lisdexamfetamine [Vyvanse] 30 mg capsule 30 mg PO DAILY Qty: 30 0RF Rx Instructions: take same time every am alprazolam [Xanax] 0.25 mg tablet 0.25 mg PO BID PRN (Reason: anxiety) Qty: 4 0RF Rx Instructions: will take prior to flight Follow-up/Referrals: Beka Hernández MD [Primary Care Provider, Family Practice] Time of Disposition: 11:57
[2025-07-06 12:13] VITALS: BP 110/62; PULSE 66; RESP 16; O2SAT 99
== END 2025-07-06 12:19 | disposition home or self-care (01) ==
PROVIDERS: Emergency Provider Family Medicine; PCP Family Medicine
DX: K52.9 Noninfective gastroenteritis and colitis, unspecified (principal); E66.3 Overweight; Z68.24 Body mass index [BMI] 24.0-24.9, adult
CPT/HCPCS: 36415; 74177; 80053; 81003; 81025; 85025; 96360; 99284; J7030; Q9967